=== PATIENT | male | born 1975 | race African-American/Black ===

== ENCOUNTER 2020-06-24 06:20 | Emergency (ER) | payer OTHER, SELFPAY ==
[2020-06-24 06:31] VITALS: BP 161/103; PULSE 86; RESP 14; TEMP 37.1; O2SAT 95
--- NOTE | 2020-06-24 06:45 | ED.GENADULT ---
HPI - General Adult General Chief complaint: Headache <Hansel Yancey MD - Last Filed: 06/24/20 06:47> Stated complaint: headache <Hansel Yancey MD - Last Filed: 06/24/20 06:47> Time Seen by Provider: 06/24/20 06:39 <Hansel Yancey MD - Last Filed: 06/24/20 06:47> History of Present Illness HPI narrative: Patient is a 44-year-old male who presents ER with multiple issues. Patient reports he has been feeling ill since 06/20/2020. He has been having throbbing headache as well as nausea with diarrhea. He has had some minor cough. No dyspnea. Reports body cramps as well as fevers. No known sick contacts. Denies loss of smell or taste. <Hansel Yancey MD - Last Filed: 06/24/20 06:47> Related Data Allergies/adverse reactions: Allergies Allergy/AdvReac Type Severity Reaction Status Date / Time No Known Allergies Allergy Verified 06/24/20 06:30 <Hansel Yancey MD - Last Filed: 06/24/20 06:47> Review of Systems Review of Systems: All systems reviewed & are unremarkable except as noted in HPI and below <Hansel Yancey MD - Last Filed: 06/24/20 06:47> Constitutional: Constitutional: Denies chills, Reports fatigue and Reports fever(s) <Hansel Yancey MD - Last Filed: 06/24/20 06:47> ENT: Denies nasal congestion and Denies sore throat <Hansel Yancey MD - Last Filed: 06/24/20 06:47> Cardiovascular: Cardiovascular: Denies chest pain and Denies radiating jaw, neck or arm pain <Hansel Yancey MD - Last Filed: 06/24/20 06:47> Respiratory: Respiratory: Reports cough, Denies dyspnea and Denies wheezing <Hansel Yancey MD - Last Filed: 06/24/20 06:47> Gastrointestinal: Gastrointestinal: Denies abdominal pain, Reports diarrhea, Reports nausea and Denies vomiting <Hansel Yancey MD - Last Filed: 06/24/20 06:47> Musculoskeletal: Musculoskeletal: Denies back pain and Reports muscle cramps <Hansel Yancey MD - Last Filed: 06/24/20 06:47> PMFSH Past Medical History Medical History: Medical History (Updated 06/24/20 @ 07:56 by Carmen Burleson MD) Hypertension <Hansel Yancey MD - Last Filed: 06/24/20 06:47> Surgical History Surgical History: Surgical History (Updated 06/24/20 @ 06:46 by Hansel Yancey MD) No history of previous surgery <Hansel Yancey MD - Last Filed: 06/24/20 06:47> Social History Social History: Social History (Updated 06/24/20 @ 06:46 by Hansel Yancey MD) Smoking status: Never smoker <Hansel Yancey MD - Last Filed: 06/24/20 06:47> Exam Narrative: Exam Narrative: GENERAL: Well-appearing, well-nourished, and in no acute distress. HEAD: Normocephalic, atraumatic. EYES: PERRL and EOMI. ENT: Mucous membranes moist. NECK: Supple. Painless range of motion of the neck without meningismus. CHEST: Clear to auscultation. No respiratory distress. HEART: Regular rate and rhythm. Normal peripheral pulses. ABDOMEN: Soft, nontender, nondistended, normal active bowel sounds. EXTREMITIES: Normal range of motion. No edema. NEURO: Alert and oriented x3. PSYCH: Normal mood and affect. <Hansel Yancey MD - Last Filed: 06/24/20 06:47> Course Vital Signs Vital signs: Vital Signs Temperature 37.1 C 06/24/20 06:31 Pulse Rate 86 06/24/20 06:31 Respiratory Rate 14 06/24/20 06:31 Blood Pressure 161/103 H 06/24/20 06:31 Pulse Oximetry 95 06/24/20 06:31 Temperature 37.1 C 06/24/20 06:31 Pulse Rate 86 06/24/20 06:31 Respiratory Rate 14 06/24/20 06:31 Blood Pressure 161/103 H 06/24/20 06:31 Pulse Oximetry 95 06/24/20 06:31 <Hansel Yancey MD - Last Filed: 06/24/20 06:47> Vital Signs Temperature 37.1 C 06/24/20 06:31 Pulse Rate 86 06/24/20 06:31 Respiratory Rate 14 06/24/20 06:31 Blood Pressure 161/103 H 06/24/20 06:31 Pulse Oximetry 95 06/24/20 06:31 Temperature 37.1 C 06/24/20 06:31 Pulse Rate 86 11
[2020-06-24] MEDS: SODIUM CHLORIDE 0.9% IV 1,000 ML 999 ML IV CONT (06:50)
[2020-06-24] MEDS: KETOROLAC 30 MG/ML VIAL (*BKC) IV PUSH (06:51)
[2020-06-24] MEDS: ONDANSETRON INJ 4 MG/2 ML VIAL IV PUSH (06:51)
[2020-06-24 06:59] LABS: Basophils Percent Auto 0.4 % (0.2-1.2); Eosinophils Absolute Auto 0.2 K/mm3 (0-0.3); Eosinophils Percent Auto 2.8 % (0-4.4); Hematocrit 48.5 % (42.0-52.0); Immature Granulocyte Absolute 0.02 K/mm3 (0.00-0.031); Immature Granulocyte Percent A 0.4 % (0-0.5); Mean Corpuscular HGB Conc 35.1 g/dl (32-36); Mean Corpuscular Hemoglobin 28.8 pg (26-34); Mean Corpuscular Volume 82.1 fl (80-100); Mean Platelet Volume 10.8 fl (7.4-10.4); Monocytes Absolute Auto 0.7 K/mm3 (0.1-0.6); Monocytes Percent Auto 11.7 % (2.6-8.5); Neutrophils Absolute Auto 3.6 K/mm3 (1.3-6.7); Neutrophils Percent Auto 63.7 % (45.5-73.1); Platelet Count Result 222 k/mm3 (150-375); Red Blood Count 5.91 M/mm3 (4.6-6.20); Red Cell Distribution Width 13.1 % (11.5-14.5); White Blood Count 5.7 K/mm3 (4.5-10.0)
[2020-06-24 07:15] LABS: Potassium 3.9 mmol/L (3.4-5.0)
--- NOTE | 2020-06-24 07:23 | PC.NURSE ---
This RN into room to swab pt. Pt is snoring and has to be woken to swab. Pts visitor is recordingthis RN as i swab pt. Informed charge nurse of this.
[2020-06-24 07:32] LABS: Anion Gap 7 mmol/L (8-16); Blood Urea Nitrogen 15 mg/dL (9-20); Calcium 8.9 mg/dL (8.4-10.2); Carbon Dioxide 33 mmol/L (22-30); Chloride 97 mmol/L (98-107); Estimated CRCL calculation 92 ml/min; Estimated Glomerular Filt Rate > 60; Glucose 123 mg/dL (75-110); Sodium 137 mmol/L (137-145)
[2020-06-24 19:52] LABS: SARS-CoV-2 RNA PCR Positive
== END 2020-06-24 08:12 | disposition home or self-care (01) ==
PROVIDERS: Emergency Medicine; Emergency Provider Emergency Medicine
DX: U07.1 COVID-19 (principal); G44.209 Tension-type headache, unspecified, not intractable; I10 Essential (primary) hypertension
CPT/HCPCS: 36415; 80048; 85025; 87635; 87804; 96361; 96374; 96375; 99284; C9803; J1885; J2405; J7030; U0003

== ENCOUNTER 2020-06-28 07:43 | Observation (INO) | payer OTHER, SELFPAY ==
[2020-06-28] VITALS (26 sets, daily range): BP systolic 104–151; BP diastolic 71–98; PULSE 74–92; RESP 0–25; TEMP 36.4–37.2; O2SAT 92–98; BMI 42.3
--- NOTE | ~2020-06-28 | XR_ITS ---
EXAMINATION: XR chest 1V portable EXAM DATE: 06/28/2020 08:34 INDICATION: weakness, covid + . TECHNIQUE: Portable AP frontal chest x-ray was obtained. There is no prior study for comparison. FINDINGS: Bilateral ill-defined nonconfluent acute airspace disease suspected, could be early acute l connor injury from SARS-CoV-2 given history provided. No pneumothorax or pleural effusion. Cardiomediast inal silhouette is normal. There are no osseous abnormalities identified. IMPRESSION: Suspect developing ill-defined bilateral acute airspace disease, clinical correlation. Reviewed, dictated and finalized at location A. ERCIAL RETOUCHER IMPRESSION: Suspect developing ill-defined bilateral acute airspace disease, c linical correlation.
--- NOTE | ~2020-06-28 | CT_ITS ---
EXAMINATION: CT brain wo con DATE: 06/29/2020 08:41 INDICATION: Headache. TECHNIQUE: Computed tomography (CT) of the head was performed without intravenous contrast. The mA wa s adjusted according to patient size. Iterative reconstruction technique was employed. The dose-lengt h product was 605.33 mGy-cm. COMPARISON: None FINDINGS: There are scattered areas of low attenuation in the cerebral white matter. There is no intr acranial hemorrhage, acute infarction, or abnormal intracranial mass lesion. The ventricles are macie l in size. There is mild mucosal thickening in the paranasal sinuses. The mastoid air cells are macie l. The orbits are normal. IMPRESSION: 1. Mild nonspecific cerebral white matter disease. The differential diagnosis includes premature outside sales inspector geno small vessel ischemic disease (especially if the patient has cardiovascular risk factors), demyel inating disease such as multiple sclerosis, drug abuse, vasculitis, or reactive astrocytosis (gliosis ) secondary to nonspecific etiology. Reviewed, dictated and finalized at location A. I NEEDLE MACHINE OPERATOR IMPRESSION: 1. Mild nonspecific cerebral white matter disease. The differential diagnosis i ncludes premature chronic small vessel ischemic disease (especially if the adrian ent has cardiovascular risk factors), demyelinating disease such as multiple sc lerosis, drug abuse, vasculitis, or reactive astrocytosis (gliosis) secondary t o nonspecific etiology.
--- NOTE | 2020-06-28 08:11 | PC.NURSE ---
ERP MAE AT BEDSIDE FOR ASSESSMENT
--- NOTE | 2020-06-28 08:15 | ECG_ITS ---
Measurements Intervals [place] Rate: 84 P: 35 ID: 161 QRS: -12 QRSD: 88 T: 19 QT: 360 QTc: 427 Interpretive Statements SINUS RHYTHM NORMAL ECG Electronically Signed On 06-28-2020 9:45:29 OVERHEAD CRANE OPERATOR by Darrell Levin D.O.
--- NOTE | 2020-06-28 08:16 | ED.GENADULT ---
HPI - General Adult General Chief complaint: Upper Respiratory Infection Stated complaint: weak Time Seen by Provider: 06/28/20 07:57 Source: patient History of Present Illness HPI narrative: Patient is 44 y/o male complaining of headache, generalized weakness, SOB and diarrhea for 1 week. He describes his headache as intermittent, located in bilateral frontal area. He rates his pain as 8/10 when it occurs. He takes Aspirin for headache, which usually relieves his headache. He tested positive COVID recently. Related Data Allergies Allergy/AdvReac Type Severity Reaction Status Date / Time No Known Allergies Allergy Verified 06/24/20 06:30 Review of Systems Constitutional: Constitutional: Reports chills, Denies fever(s), Reports headache(s) and Reports weakness Eyes: Eyes: Denies blurry vision ENT: Reports headache(s) and Denies neck pain Cardiovascular: Cardiovascular: Denies chest pain and Reports dyspnea Respiratory: Respiratory: Denies cough and Reports dyspnea Gastrointestinal: Gastrointestinal: Denies abdominal pain, Reports diarrhea, Denies nausea and Denies vomiting Genitourinary: Genitourinary: Denies hematuria and Denies dysuria Musculoskeletal: Musculoskeletal: Denies back pain and Denies neck pain Neurologic: Reports headache(s) and Denies weakness PMFSH Past Medical History Medical History Hypertension Surgical History Surgical History No history of previous surgery Social History Social History Smoking status: Never smoker Gender identity (if verbalized by the patient): Male Exam Const: General: no acute distress and well developed Orientation/consciousness: oriented to person, oriented to place, oriented to time and patient oriented x3 HENMT: Head: normocephalic Ears: external ears normal General nose exam: Normal external nose present Eyes: General: appearance normal, both eyes and all related structures Conjunctivae: conjunctivae normal Neck: Neck: normal visual inspection and full ROM Chest: Chest palpation & inspection: normal inspection of the chest and no tenderness Resp: Effort & Inspection: normal respiratory effort Auscultation: clear to auscultation bilaterally Cardio: Rate: regular rate Rhythm: regular rhythm GI: GI Palp: No abdominal tenderness and Yes Soft to palpation Skin: General skin exam: normal color and turgor normal Neuro: General: oriented to person, oriented to place, oriented to time and patient oriented x3 Cognition (Neuro): normal cognition Extrem: General: normal to inspection, full ROM and no pedal edema Psych: Appearance: grossly normal Mental Status: mental status grossly normal Affect: normal affect Course Consultations Consultation #1: Discussed with Dr. León, who agrees to admit. Date: 06/28/20 Time: 09:56 Vital Signs Vital signs: Vital Signs Temperature 36.4 C 06/28/20 08:02 Pulse Rate 76 06/28/20 08:02 Respiratory Rate 25 H 06/28/20 08:02 Blood Pressure 123/92 H 06/28/20 08:02 Pulse Oximetry 95 06/28/20 08:02 Temperature 36.4 C 06/28/20 08:02 Pulse Rate 81 06/28/20 11:00 Respiratory Rate 17 06/28/20 11:00 Blood Pressure 126/89 06/28/20 11:00 Pulse Oximetry 98 06/28/20 11:00 Medical Decision Making Vital Signs Vital Signs: Vital Signs Temperature 36.4 C 06/28/20 08:02 Pulse Rate 76 06/28/20 08:02 Respiratory Rate 25 H 06/28/20 08:02 Blood Pressure 123/92 H 06/28/20 08:02 Pulse Oximetry 95 06/28/20 08:02 Temperature 36.4 C 06/28/20 08:02 Pulse Rate 81 06/28/20 11:00 Respiratory Rate 17 06/28/20 11:00 Blood Pressure 126/89 06/28/20 11:00 Pulse Oximetry 98 06/28/20 11:00 Lab Data Result diagrams: 06/28/20 08:24 06/28/20 08:24 Labs: Lab Results 06/28/20 11
--- NOTE | 2020-06-28 08:30 | PC.NURSE ---
XRAY AT BEDSIDE.
[2020-06-28 08:36] LABS: Basophils Percent Auto 0.2 % (0.2-1.2); Hematocrit 48.2 % (42.0-52.0); Hemoglobin 17.3 g/dL (14.0-18.0); Immature Granulocyte Absolute 0.01 K/mm3 (0.00-0.031); Immature Granulocyte Percent A 0.2 % (0-0.5); Lymphocytes Absolute Auto 1.23 K/mm3 (0.9-3.2); Mean Corpuscular HGB Conc 35.9 g/dl (32-36); Mean Corpuscular Hemoglobin 28.8 pg (26-34); Mean Corpuscular Volume 80.3 fl (80-100); Mean Platelet Volume 10.7 fl (7.4-10.4); Monocytes Absolute Auto 0.4 K/mm3 (0.1-0.6); Monocytes Percent Auto 8.3 % (2.6-8.5); Neutrophils Absolute Auto 2.9 K/mm3 (1.3-6.7); Neutrophils Percent Auto 64.3 % (45.5-73.1); Platelet Count Result 196 k/mm3 (150-375); Red Cell Distribution Width 12.7 % (11.5-14.5); White Blood Count 4.6 K/mm3 (4.5-10.0)
[2020-06-28 08:54] LABS: Alanine Aminotransferase 53 U/L (4-50); Alkaline Phosphatase 121 U/L (38-126); Anion Gap 10 mmol/L (8-16); Aspartate Amino Transferase 61 U/L (17-59); Bilirubin,Total 0.5 mg/dL (0.2-1.3); Blood Urea Nitrogen 24 mg/dL (9-20); Calcium 8.4 mg/dL (8.4-10.2); Carbon Dioxide 31 mmol/L (22-30); Chloride 95 mmol/L (98-107); Estimated CRCL calculation 70 ml/min; Estimated Glomerular Filt Rate 57; Glucose 111 mg/dL (75-110); Potassium 4.2 mmol/L (3.4-5.0); Sodium 136 mmol/L (137-145)
[2020-06-28 09:01] LABS: NT Pro B Type Natriuretic Pept < 11 PG/ML (5-100); Troponin I < 0.012 ng/mL (0.000-0.034)
--- NOTE | 2020-06-28 09:40 | PC.NURSE ---
PT AMBULATED BY [facility], PT O2 SATURATION BETWEEN 96-99% ON RA WHILE AMBULATING. HILDA SINGER.
[2020-06-28] MEDS: SODIUM CHLORIDE 0.9% IV 1,000 ML 999 ML IV CONT (10:31)
--- NOTE | 2020-06-28 11:10 | PC.NURSE ---
This patient, Christopher Whitney, was admitted to 3 [facility] Surg Room 326-01. Patient/family oriented to hospital policies and general routines including ID bracelet, bed and alarms, visiting hours, pain management, procedures, bathroom and other care routines, personal items, smoking policy, room service/diet, and visiting hours. Report received from Lalo [place]O Patient/Family are encouraged to report perceived risks to care and to ask questions if they do not understand what they are told or what they should do.
--- NOTE | 2020-06-28 11:56 | PM.IMHP ---
H&P: HPI History of Present Illness Date/Time: 06/28/20 11:56 Chief complaint: MARIA ELENA/COVID Narrative: Christopher Whitney is a 44 year old male with PMHx significant for Seasonal allergies, HTN. Patient was recently diagnosed with Covid 19 novel virus infection. Was having fevers, chills, sob, generalized muscle aches and pains,no cough, no sputum production, had one episode of diarrhea, has been feeling very weak overall decided to present to ED. Patient has not been able to eat or drink as usual due to decrease appetite and general malaise. Preliminary work up was remarkable for some elevation of creatinine and chest xr with developing infiltrates. Decision has been made to place patient on observation. Review of Systems Review of Systems: Narrative: General malaise, weakness, muscle aches and pains. Constitutional: Comments: fevers, chills, generalized weakness. Eyes: Comments: no vision changes. ENT: Comments: no nasal discharge, no ear ache, no throat pain. Cardiovascular: Comments: no chest pain, no palpitations, no leg swelling, no claudication. Respiratory: Comments: sob Gastrointestinal: Comments: no n/v/abdominal pain, diarrhea x 1 Musculoskeletal: Comments: generalized muscle aches and pains. Integumentary/Breasts: Comments: no rashes. Neurologic: Comments: no sensorymotor deficit. Hematologic/Lymphatic: Comments: No LAP PMFSH Past Medical History Medical History Hypertension Surgical History Surgical History No history of previous surgery Family History Family History (Updated 06/28/20 @ 11:25 by Sharmin Tadeo RN) Grandparent Diabetes mellitus Hypertension Mother Diabetes mellitus Hypertension Father Diabetes mellitus Social History Social History Smoking status: Never smoker Alcohol intake: never Substance use: never Gender identity (if verbalized by the patient): Male Spiritual care concerns: No Meds Home Medications and Allergies Home Medications Medication Instructions Recorded Confirmed Type dicyclomine 10 mg PO BID 5 Days #10 cap 06/24/20 06/28/20 Rx ondansetron HCl [Zofran] 4 mg PO Q8H #14 tablet 06/24/20 06/28/20 Rx acetaminophen 1,000 mg PO Q6H PRN 06/28/20 06/28/20 History cetirizine 10 mg PO DAILY PRN 06/28/20 06/28/20 History fluticasone propionate 1 mcg INTRANASAL DAILY PRN 06/28/20 06/28/20 History hydrochlorothiazide 25 mg PO DAILY 06/28/20 06/28/20 History Allergies Allergy/AdvReac Type Severity Reaction Status Date / Time No Known Allergies Allergy Verified 06/28/20 15:37 Vital Signs Vital Signs - 24 hr 06/28/20 08:02 06/28/20 08:08 06/28/20 08:15 Temperature 97.6 F Pulse Rate 76 79 86 Respiratory Rate 25 H 23 H 20 Blood Pressure 123/92 H 123/92 H Pulse Oximetry 95 93 94 06/28/20 08:16 06/28/20 08:30 06/28/20 08:31 Temperature Pulse Rate 87 92 89 Respiratory Rate 18 19 20 Blood Pressure 119/84 Pulse Oximetry 95 94 98 06/28/20 08:45 06/28/20 08:46 06/28/20 08:47 Temperature Pulse Rate 84 78 78 Respiratory Rate 23 H 15 9 L Blood Pressure 114/94 H Pulse Oximetry 06/28/20 09:00 06/28/20 09:01 06/28/20 09:15 Temperature Pulse Rate 79 85 83 Respiratory Rate 0 L 24 H 24 H Blood Pressure 126/89 Pulse Oximetry 92 06/28/20 09:16 06/28/20 09:30 06/28/20 09:31 Temperature Pulse Rate 80 78 80 Respiratory Rate 24 H 24 H 23 H Blood Pressure 129/93 H 136/85 Pulse Oximetry 95 95 06/28/20 09:36 06/28/20 09:45 06/28/20 10:00 Temperature Pulse Rate 81 77 85 Respiratory Rate 23 H 24 H 25 H Blood Pressure Pulse Oximetry 94 06/28/20 10:01 06/28/20 10:15 06/28/20 10:17 Temperature Pulse Rate 86 77 74 Respiratory Rate 22 H 20 24 H Blood Pressure 104/90 146/98 H Pulse Oximetry 06/28/20 10:53 06/28/20 11:00
[2020-06-28] MEDS: SODIUM CHLORIDE 0.9% IV 1,000 ML 75 ML IV CONT (15:17)
[2020-06-28] MEDS: ACETAMINOPHEN 325 MG TABLET 650 MG PO (17:47)
[2020-06-28] MEDS: ONDANSETRON INJ 4 MG/2 ML VIAL IV PUSH (18:55)
[2020-06-28] MEDS: HEPARIN SODIUM 5,000 UNITS/ML VIAL 5000 UNITS SUB-Q (21:53)
[2020-06-29] MEDS: ACETAMINOPHEN 325 MG TABLET 650 MG PO ×2 (01:19→09:00)
[2020-06-29 02:08] VITALS: BP 123/75; PULSE 79; RESP 16; TEMP 37.1; O2SAT 93
[2020-06-29] MEDS: diphenhydrAMINE HCl CAP 25 MG CAPSULE PO (03:05)
[2020-06-29] MEDS: SODIUM CHLORIDE 0.9% IV 1,000 ML 75 ML IV CONT (03:59)
[2020-06-29] MEDS: METOCLOPRAMIDE HCL INJ 10 MG/2 ML VIAL IV PUSH (03:59)
[2020-06-29 04:00] VITALS: BP 149/99; PULSE 86; RESP 18; TEMP 36.9; O2SAT 95
[2020-06-29 06:49] LABS: Basophils Percent Auto 0.2 % (0.2-1.2); Hematocrit 47.7 % (42.0-52.0); Hemoglobin 16.6 g/dL (14.0-18.0); Immature Granulocyte Absolute 0.01 K/mm3 (0.00-0.031); Immature Granulocyte Percent A 0.2 % (0-0.5); Lymphocytes Absolute Auto 1.86 K/mm3 (0.9-3.2); Lymphocytes Percent Auto 34.5 % (18.3-44.2); Mean Corpuscular HGB Conc 34.8 g/dl (32-36); Mean Corpuscular Hemoglobin 27.9 pg (26-34); Mean Corpuscular Volume 80.2 fl (80-100); Monocytes Absolute Auto 0.4 K/mm3 (0.1-0.6); Neutrophils Absolute Auto 3.1 K/mm3 (1.3-6.7); Neutrophils Percent Auto 57.1 % (45.5-73.1); Platelet Count Result 201 k/mm3 (150-375); Red Blood Count 5.95 M/mm3 (4.6-6.20); Red Cell Distribution Width 12.3 % (11.5-14.5); White Blood Count 5.4 K/mm3 (4.5-10.0)
[2020-06-29 07:23] LABS: Anion Gap 5 mmol/L (8-16); Blood Urea Nitrogen 19 mg/dL (9-20); Calcium 8.3 mg/dL (8.4-10.2); Carbon Dioxide 34 mmol/L (22-30); Chloride 95 mmol/L (98-107); Estimated CRCL calculation 80 ml/min; Estimated Glomerular Filt Rate > 60; Glucose 93 mg/dL (75-110); Potassium 4.3 mmol/L (3.4-5.0); Sodium 134 mmol/L (137-145)
[2020-06-29 08:00] VITALS: BP 146/87; PULSE 86; RESP 16; TEMP 36.9; O2SAT 96
[2020-06-29 08:43] LABS: Basophils Percent Auto 0.2 % (0.2-1.2); Hematocrit 47.9 % (42.0-52.0); Hemoglobin 16.9 g/dL (14.0-18.0); Immature Granulocyte Absolute 0.01 K/mm3 (0.00-0.031); Immature Granulocyte Percent A 0.2 % (0-0.5); Lymphocytes Absolute Auto 1.67 K/mm3 (0.9-3.2); Lymphocytes Percent Auto 31.9 % (18.3-44.2); Mean Corpuscular HGB Conc 35.3 g/dl (32-36); Mean Corpuscular Hemoglobin 27.9 pg (26-34); Mean Platelet Volume 9.9 fl (7.4-10.4); Monocytes Absolute Auto 0.3 K/mm3 (0.1-0.6); Monocytes Percent Auto 6.3 % (2.6-8.5); Neutrophils Absolute Auto 3.2 K/mm3 (1.3-6.7); Neutrophils Percent Auto 61.4 % (45.5-73.1); Platelet Count Result 171 k/mm3 (150-375); Red Blood Count 6.06 M/mm3 (4.6-6.20); Red Cell Distribution Width 12.3 % (11.5-14.5); White Blood Count 5.2 K/mm3 (4.5-10.0)
[2020-06-29 08:58] LABS: Anion Gap 5 mmol/L (8-16); Blood Urea Nitrogen 19 mg/dL (9-20); Calcium 8.4 mg/dL (8.4-10.2); Carbon Dioxide 33 mmol/L (22-30); Chloride 96 mmol/L (98-107); Estimated CRCL calculation 86 ml/min; Estimated Glomerular Filt Rate > 60; Glucose 93 mg/dL (75-110); Potassium 4.1 mmol/L (3.4-5.0); Sodium 134 mmol/L (137-145)
[2020-06-29] MEDS: HEPARIN SODIUM 5,000 UNITS/ML VIAL 5000 UNITS SUB-Q (09:00)
[2020-06-29] MEDS: DICYCLOMINE HCL 10 MG CAPSULE PO (09:00)
[2020-06-29] MEDS: hydroCHLOROthiazide 25 MG TABLET PO (09:00)
--- NOTE | 2020-06-29 10:34 | PM.DS ---
DS: Admitting Diagnosis Admitting Diagnosis Admitting Diagnosis: MARIA ELENA/COVID DS: Discharge Diagnosis Discharge Diagnosis (1) MARIA ELENA (acute kidney injury): Code(s): N17.9 - Acute kidney failure, unspecified Status: Acute Assessment and Plan: Likely to be pre renal azotemia Improved with iv fluids. (2) Pneumonia due to COVID-19 virus: Code(s): U07.1 - COVID-19; J12.89 - Other viral pneumonia Status: Acute Assessment and Plan: Supportive care. (3) Weakness: Code(s): R53.1 - Weakness Status: Acute Assessment and Plan: Likely secondary to SIRS Able to care for self (4) Headache: Qualifiers: Headache chronicity pattern: unspecified pattern Headache type: unspecified Intractability: not intractable Qualified Code(s): R51.9 - Headache, unspecified Code(s): R51.9 - Headache, unspecified Status: Acute Assessment and Plan: Likely secondary to viral illness CT head with no acute changes (5) Dehydration: Code(s): E86.0 - Dehydration Status: Acute Assessment and Plan: Likely secondary to poor oral intake Resolved with fluids. DS: Summary Time Spent with Patient Time attestation: Total time spent providing and/or coordinating discharge services: Exam Narrative: Exam Narrative: Lying in bed NAD Const: General: cooperative, comfortable, no acute distress, alert, awake and Physically active Nutritional Appearance: average body habitus Orientation/consciousness: patient oriented x3 Limitations: no limitations HENMT: Head: normal to inspection and normocephalic Eyes: General: appearance normal, both eyes and all related structures Pupils: Equal, round and reactive pupils present EOM: EOMs intact bilaterally Neck: Neck: normal visual inspection, full ROM, no lymphadenopathy and no JVD Resp: Auscultation: clear to auscultation bilaterally Cardio: Jugular venous distension: no JVD Rate: regular rate Rhythm: regular rhythm GI: Inspection: normal to inspection GI Palp: Yes Soft to palpation and Yes No hepatosplenomegaly present Skin: General skin exam: normal color Lesions: no lesions Rashes: no rashes Trauma: no lacerations or abrasions Wounds: no wounds Neuro: General: patient oriented x3 and CN's II-XI intact bilaterally Cranial nerves: Yes CN's II-XII intact bilaterally and Yes Equal, round and reactive pupils present Cognition (Neuro): normal cognition Speech: normal speech Gait exam (Neuro): Normal gait present Motor exam (neuro): 5/5 motor strength present throughout Sensory Exam: normal sensation Extrem: General: full ROM and no pedal edema DS: Data Data Completed and Pending Labs on day of discharge: Labs from last 24 hours 06/29/20 06/29/20 06/29/20 08:30 08:30 06:24 WBC 5.2 RBC 6.06 Hgb 16.9 Hct 47.9 MCV 79.0 L MCH 27.9 MCHC 35.3 RDW 12.3 Plt Count 171 MPV 9.9 Immature Gran % (Auto) 0.2 Neut % (Auto) 61.4 Lymph % (Auto) 31.9 Ralls % (Auto) 6.3 Eos % (Auto) 0.0 Baso % (Auto) 0.2 Lymph # (Auto) 1.67 Ralls # (Auto) 0.3 Eos # (Auto) 0.0 Baso # (Auto) 0.0 Abs Immat Gran (auto) 0.01 Absolute Neuts (auto) 3.2 Absolute Nucleated RBC 0.0 Nucleated RBC % 0.0 Sodium 134 L 134 L Potassium 4.1 4.3 Chloride 96 L 95 L Carbon Dioxide 33 H 34 H Anion Gap 5 L 5 L BUN 19 19 Creatinine 1.30 1.40 H Estim Creat Clear Calc 86 80 Estimated GFR > 60 > 60 Glucose 93 93 Calcium 8.4 8.3 L 06/29/20 06:24 WBC 5.4 RBC 5.95 Hgb 16.6 Hct 47.7 MCV 80.2 MCH 27.9 MCHC 34.8 RDW 12.3 Plt Count 201 MPV 11.0 H Immature Gran % (Auto) 0.2 Neut % (Auto) 57.1 Lymph % (Auto) 34.5 Ralls % (Auto) 8.0 Eos % (Auto) 0.0 Baso % (Auto) 0.2 Lymph # (Auto) 1.86 Ralls # (Auto) 0.4 Eos # (Auto) 0.0 Baso # (Auto) 0.0 Abs Immat Gran (auto) 0.01 Absolute Neuts (auto) 3.1 Absolute Nuc
== END 2020-06-29 13:10 | disposition home or self-care (01) ==
LOC: ANHED 07:59 → ANH3MEDSUR 10:40
PROVIDERS: Admitting Provider Internal Medicine; Emergency Provider Emergency Medicine; Visit Provider Internal Medicine
DX: U07.1 COVID-19 (principal); J12.89 Other viral pneumonia; N17.9 Acute kidney failure, unspecified; R51.9 Headache, unspecified; I10 Essential (primary) hypertension; R53.1 Weakness
CPT/HCPCS: 36415; 70450; 71045; 80048; 80053; 83880; 84484; 85025; 93005; 96361; 96372; 96374; 99285; A9270; G0378; G0379; J1644; J2405; J2765; J7030